=== PATIENT | male | born 1970 | race Caucasian/White ===

== ENCOUNTER 2018-02-19 14:29 | Emergency (ER) | payer MEDICAID, OTHER ==
[~2018-02-19] VITALS: Ht 182.9 cm; Wt 78.2 kg
[~2018-02-19 14:29] MED LIST: GUAI120015 PO
[2018-02-19] MEDS ORDERED: cephalexin 250mg capsule PO ONE (17:05)
[2018-02-19] MEDS ORDERED: LORazepam 1 MG tablet PO ONE (17:05)
[2018-02-19] MEDS ORDERED: HYDROcodone/acetaminophen 5mg/325mg tablet PO ONE (17:05)
[2018-02-19] MEDS ORDERED: sulfamethoxazole/trimethoprim DS (800/160mg) tablet PO ONE (17:05)
[2018-02-19] MEDS ORDERED: LIDOcaine 1.5% w/epinephrine 1:200,000 5ml ampul IJ ONE (17:05)
[2018-02-19] MEDS ORDERED: CEPH500C5 PO (18:53)
[2018-02-19] MEDS ORDERED: HYDR-3965 PO (18:53)
[2018-02-19] MEDS ORDERED: BACDS PO (18:53)
[2018-02-19 19:26] VITALS: BP 113/52
== END 2018-02-19 19:30 | disposition home or self-care (01) ==
LOC: ER 14:29
DX: L02.414 Cutaneous abscess of left upper limb (principal); L03.114 Cellulitis of left upper limb; G89.29 Other chronic pain; F17.210 Nicotine dependence, cigarettes, uncomplicated; F15.10 Other stimulant abuse, uncomplicated; Z79.899 Other long term (current) drug therapy
CPT/HCPCS: 10060; 99284; J3490